=== PATIENT | male | born 1945 | race Caucasian/White ===

== ENCOUNTER 2022-09-27 21:51 | Emergency (ER) | payer OTHER ==
[~2022-09-27] VITALS: Ht 170.2 cm; Wt 69.0 kg
[2022-09-28] MEDS ORDERED: TETANUS-DIPTH-ACEL PERTUSSIS 0.5ML SYR Tdap IM ONE
[2022-09-28 03:09] VITALS: BP 143/58; PULSE 60; RESP 18; TEMP 97.8; O2SAT 98
[2022-09-28] MEDS ORDERED: PERCOT PO (07:28)
[2022-09-28] MEDS ORDERED: ZOFR4T PO (07:28)
[2022-09-28] MEDS ORDERED: CLIN-203 PO (07:28)
== END 2022-09-28 06:14 | disposition home or self-care (01) ==
LOC: ER 21:51
DX: S92.422A Displaced fracture of distal phalanx of left great toe, initial encounter for closed fracture (principal); E11.9 Type 2 diabetes mellitus without complications; E78.5 Hyperlipidemia, unspecified; F17.290 Nicotine dependence, other tobacco product, uncomplicated; F15.90 Other stimulant use, unspecified, uncomplicated; Z79.1 Long term (current) use of non-steroidal anti-inflammatories (NSAID); Z79.899 Other long term (current) drug therapy; W20.8XXA Other cause of strike by thrown, projected or falling object, initial encounter; Y93.89 Activity, other specified; Y92.89 Other specified places as the place of occurrence of the external cause; Y99.8 Other external cause status
CPT/HCPCS: 11730; 12002; 73630; 90471; 90715

== ENCOUNTER 2022-10-01 07:00 | Emergency (ER) | payer OTHER ==
[~2022-10-01] VITALS: Ht 172.7 cm; Wt 68.2 kg
[~2022-10-01 07:00] MED LIST: CLIN-203 PO; PERCOT PO; ZOFR4T PO
[2022-10-01 10:57] VITALS: BP 138/66; PULSE 67; RESP 18
[2022-10-01 10:59] VITALS: O2SAT 98
== END 2022-10-01 11:00 | disposition home or self-care (01) ==
LOC: ER 07:00
DX: S09.90XA Unspecified injury of head, initial encounter (principal); E11.9 Type 2 diabetes mellitus without complications; F12.90 Cannabis use, unspecified, uncomplicated; E78.5 Hyperlipidemia, unspecified; Z87.442 Personal history of urinary calculi; Z90.89 Acquired absence of other organs; Z98.890 Other specified postprocedural states; Z79.899 Other long term (current) drug therapy; W17.89XA Other fall from one level to another, initial encounter; Y93.89 Activity, other specified; Y92.89 Other specified places as the place of occurrence of the external cause; Y99.8 Other external cause status
CPT/HCPCS: 70450; 72125; 93005